=== PATIENT | male | born 1955 | race Caucasian/White ===

== ENCOUNTER 2024-05-18 07:25 | Emergency (ER) | payer MEDICARE, SELFPAY ==
[2024-05-18 07:36] VITALS: BP 147/96; PULSE 85; RESP 20; TEMP 36.6; O2SAT 97; BMI 31.4
--- NOTE | 2024-05-18 07:36 | XR_ITS ---
FINAL REPORT TECHNIQUE: 2 view chest CLINICAL HISTORY: Nonspecific cough COMPARISON: None FINDINGS: PA and lateral views of the chest were obtained. No acute pulmonary opacities present. There is no evidence of effusion or pneumothorax. 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 Otherwise mediastinum is unremarkable. The heart is normal in size. IMPRESSION: No acute findings. Reviewed, Interpreted and Dictated by Puja Caceres MD Transcribed by Bettye Alan Authenticated and [facility]
--- NOTE | 2024-05-18 07:41 | HMH.EDGENADL ---
Discharge Plan Disposition Patient Disposition: Home, Self-Care Prescriptions Prescriptions: New doxycycline hyclate 100 mg capsule 100 mg PO BID 7 Days Qty: 14 0RF fdysxydyskjqxsm-illjlqcko-WD [Bromfed DM] 2-30-10 mg/5 mL syrup 5 ml PO Q6H PRN (Reason: cold symptoms) Qty: 118 0RF No Action atorvastatin 40 mg tablet 40 mg PO HS Patient Comments: TAKE 1 TABLET BY MOUTH ONCE DAILY venlafaxine 75 mg capsule,extended release 24hr 75 mg PO DAILY Patient Comments: TAKE 1 CAPSULE BY MOUTH ONCE DAILY pioglitazone 45 mg tablet 45 mg PO DAILY Patient Comments: TAKE 1 TABLET BY MOUTH ONCE DAILY meloxicam 7.5 mg tablet 7.5 mg PO DAILY Patient Comments: TAKE 1 TABLET BY MOUTH ONCE DAILY amlodipine 10 mg tablet 10 mg PO DAILY Patient Comments: TAKE 1 TABLET BY MOUTH ONCE DAILY metformin 1,000 mg tablet 1,000 mg PO BID Patient Comments: TAKE 1 TABLET BY MOUTH TWICE DAILY metoprolol succinate 25 mg tablet extended release 24 hr 25 mg PO HS Patient Comments: TAKE 1 TABLET BY MOUTH ONCE DAILY AT NIGHT lisinopril 40 mg tablet 40 mg PO DAILY Patient Comments: TAKE 1 TABLET BY MOUTH ONCE DAILY Referrals Follow up/Referrals: Provider,Referral, MD [Primary Care Provider] - See instructions Activity Restrictions/Add. Instructions Additional Instructions/Restrictions: At this time it was felt you are safe to be discharged home. If new or worsening symptoms please do not hesitate to return the emergency department. Please take your medications as prescribed. Clinical Impressions Clinical Impression: Atypical pneumonia Print Language Print Language: Icelandic Discharge ED Provider: Dyllan Heredia General Adult HPI General Chief complaint: Fever Stated complaint: fever, body aches, headache Time Seen by Provider: 05/18/24 07:36 History of Present Illness HPI narrative: Patient is a 68-year-old male with past medical history of diabetes who presents emergency department for evaluation of cough, congestion, body aches, loose stools. Onset was acute, over the last few days. No trauma. His sugars have been running well according to patient. No chest pain, no abdominal pain, no vision changes reported. No other acute complaints at this time. Please note that above description of symptoms, in this electronic medical record under categorization of recalled from ER triage doctor by RN are reflective of an initial nursing assessment, however, is not reflective of my full history and physical exam that was personally taken and clarified. Consequentially, this preceding description of symptoms, which may include the patient's categorized chief complaint in the EMR, do not reflect my personal clinical impression, and the ultimate description of history of present illness and patient stated complaints should be deferred to this section of the note. Unless stated otherwise or congruent with this section of the note, additional signs, symptoms, or incongruence should be interpreted as inaccurate with my clinical impression. Related Data Home Medications ?Medication ?Instructions ?Recorded ?Confirmed amlodipine 10 mg tablet 10 mg PO DAILY 05/18/24 05/18/24 atorvastatin 40 mg tablet 40 mg PO HS 05/18/24 05/18/24 lisinopril 40 mg tablet 40 mg PO DAILY 05/18/24 05/18/24 meloxicam 7.5 mg tablet 7.5 mg PO DAILY 05/18/24 05/18/24 metformin 1,000 mg tablet 1,000 mg PO BID 05/18/24 05/18/24 metoprolol succinate 25 mg 25 mg PO HS 05/18/24 05/18/24 tablet,extended release 24 hr pioglitazone 45 mg tablet 45 mg PO DAILY 05/18/24 05/18/24 venlafaxine 75 mg capsule,extended 75 mg PO DAILY 05/18/24 05/18/24 release 24 hr Previous Rx's ?Medication ?Instructions ?Recorded uumxebargwlvkhz-qyavtswgpymdoel-HH 5 ml PO Q6H PRN cold symptoms #118 05/18/24 2 mg-30 mg-10 mg/5 mL oral syrup mL (Bromfed DM) doxycycline hyclate 100 mg capsule 100 mg PO BID 7 days #14 caps 05/18/24 Allergies Allergy/AdvReac Type Severity Reaction Status Date / Time Naproxen Allergy Unknown Uncoded 02/16/17 15:09 [facility] Disclaimer: The information contained in this section may have been updated after the patient was seen, as this information can be updated by other users. Medical History (Updated 05/18/24 @ 08:32 by Dyllan eHredia MD) HLD (hyperlipidemia) Depression HTN (hypertension) Diabetes Social History Smoking Status: Never smoker alcohol intake: never current occupational status: other Travel in the last 8 weeks: None ROS Obtained: Yes Systems reviewed as appropriate & no additional complaints except as documented Physical Exam General General appearance: alert and in no apparent distress Head Head exam: atraumatic and normocephalic Eye Eye exam: Present PERRL and EOMI ENT ENT exam: Present mucous membranes moist Neck Neck exam: Present normal inspection Chest Chest inspection: Present normal inspection and symmetric chest wall rise Respiratory Respiratory exam: Present normal lung sounds bilaterally; Absent respiratory distress Cardiovascular Cardiovascular exam: Present regular rate and normal rhythm Abdominal Exam Abdominal exam: Present soft; Absent tenderness Extremities Exam Extremities exam: Present normal inspection Neurological Exam Neurological exam: Present alert, oriented X3, CN II-XII intact and normal gait; Absent motor sensory deficit Psychiatric Psychiatric exam: Present normal affect Skin Skin exam: Present warm and dry Medical Decision Making Medical Records Screening: Per USPSTF and CDC recommendations, given the prevalence of disease in our region, it is our hospital?s policy to screen for HIV and viral Hepatitis for all patients aged 18 and over and those with ongoing risk factors. Huy Inquiry Pt receiving controlled substance: No Vital Signs: 05/18/24 07:36 Temperature 97.9 F Temperature Source Temporal Artery Scan Pulse Rate [Right] 85 Respiratory Rate 20 Blood Pressure [Left Arm] 147/96 H Blood Pressure Mean [Left Arm] 113 Blood Pressure Source [Left Arm] Automatic Cuff 02 Sat by Pulse Oximetry 97 Oxygen Delivery Method Room Air Lab Data Lab Results 05/18/24 07:29: SARS-CoV-2 (PCR) Not detected, Influenza A Untype (PCR) Not detected, Influenza Type B (PCR) Not detected Orders (Tests/Meds): ED MEDICATIONS Discontinued Medications Generic Name Dose Route Start Last Admin Trade Name Bob PRN Reason Stop Dose Admin Acetaminophen 1,000 mg 05/18/24 07:45 05/18/24 07:55 Acetaminophen 500mg Tab PO 05/18/24 07:46 1,000 mg ONCE ONE Administration Ibuprofen 600 mg 05/18/24 07:45 05/18/24 07:55 Ibuprofen 600 Mg Tablet PO 05/18/24 07:46 600 mg ONCE ONE Administration ORDERS Category Date Time Status CXR 2 view (NOT portable) [XR chest 2V] Stat Exams 05/18/24 07:36 Completed Rapid PCR Covid and Flu A/B Stat Lab 05/18/24 07:29 Completed Medical Decision Narrative: In summary patient is a 68-year-old male past medical history described above presents emergency department for evaluation of cough, myalgias, congestion. Patient is hemodynamically stable nontoxic-appearing upon arrival, afebrile, nonfocal exam. Lungs are largely clear to auscultation. Screening for occult pneumonia will be conducted with two-view chest x-ray. Differential includes viral syndrome, among others. No chest pain warrant ACS workup. Fingerstick will be conducted to screen for hyperglycemia that would cause DKA. Initial inventions include Tylenol and ibuprofen. Initial workup reviewed by me, viral swab negative, chest x-ray informally interpreted by me, there appears to be reticulonodular opacities which given prevalence of atypical pneumonia or community may suggest atypical pneumonia given his symptoms. Fingerstick less than 200 no concern for DKA. Upon repeat evaluation patient had no tachycardia, no significant respiratory distress given this workup with labs and other imaging was considered but will be deferred at this time. Given this patient be treated with a course of doxycycline on an outpatient basis and was given return precautions. Critical Care Critical Care Time Critical Care Time: No
[2024-05-18 07:42] LABS: Coronavirus 19, PCR Not Detected (NotDetected); Influenza A, PCR Not Detected (NotDetected); Influenza B, PCR Not Detected (NotDetected)
[2024-05-18] MEDS: IBUPROFEN 600 MG TABLET PO (07:55)
[2024-05-18] MEDS: ACETAMINOPHEN 500MG TAB 1000 MG PO (07:55)
--- NOTE | 2024-05-18 08:32 | PC.NURSE ---
PATIENTS FINGER STICK WAS 190.
[2024-05-18 08:39] VITALS: BP 146/88; PULSE 84; RESP 18; TEMP 36.6; O2SAT 97
== END 2024-05-18 08:39 | disposition home or self-care (01) ==
PROVIDERS: Emergency Provider Emergency Medicine
DX: J18.9 Pneumonia, unspecified organism (principal); R05.9 Cough, unspecified; R09.81 Nasal congestion; M79.10 Myalgia, unspecified site; R19.7 Diarrhea, unspecified
CPT/HCPCS: 71046; 87636; 99283

== ENCOUNTER 2024-08-11 00:01 | Observation (INO) | payer MEDICARE, SELFPAY ==
[2024-08-11] VITALS (54 sets, daily range): BP systolic 127–203; BP diastolic 57–118; PULSE 46–80; RESP 10–26; TEMP 36.4–37.5; O2SAT 89–98; BMI 30.7; BMI 33.2
--- NOTE | 2024-08-11 | ECG_ITS ---
APPROVED REPORT Exam: Resting ECG HR:61 bpm ECG Measurements Heart Rate 61 AXES CA 202 P 83 QRSd 93 QRS -19 QT 396 T 54 QTc 399 Conclusion SINUS RHYTHM SEPTAL MYOCARDIAL INFARCTION , PROBABLY OLD [40+ ms Q WAVE IN V1/V2] ST DEPRESSION, CONSIDER SUBENDOCARDIAL INJURY [0.1+ mV ST DEPRESSION] ABNORMAL ECG WARNING: DATA QUALITY MAY AFFECT INTERPRETATION UNCONFIRMED REPORT Electronically signed by : LUBA ARORA, 08/11/2024 06:50:17
--- NOTE | 2024-08-11 00:06 | CT_ITS ---
PROCEDURE INFORMATION: Exam: CTA Abdomen and Pelvis With Contrast Exam date and time: 08/11/2024 12:21 AM Age: 68 years old Clinical indication: Abdominal pain; Acute; Additional info: HTN, severe cp/epigastric pain into back TECHNIQUE: Imaging protocol: Computed tomographic angiography of the abdomen and pelvis with contrast. Exam focused on the arteries. 3D rendering (Not supervised by radiologist): MIP and/or 3D reconstructed images were created by the technologist. Radiation optimization: All CT scans at this facility use at least one of these dose optimization techniques: automated exposure control; mA and/or kV adjustment per patient size (includes targeted exams where dose is matched to clinical indication); or iterative reconstruction. Contrast material: ISOVUE; Contrast volume: 80 ml; Contrast route: INTRAVENOUS (IV); COMPARISON: CT ANGIO CHEST 08/11/2024 12:21 AM FINDINGS: Aorta: No aortic aneurysm. No aortic dissection. Mild atherosclerotic calcification. Celiac trunk and mesenteric arteries: No occlusion or significant stenosis. Mild ostial calcification. Renal arteries: No occlusion or significant stenosis. Mild osteo calcification. Right iliac arteries: No occlusion or significant stenosis. Mild atherosclerotic calcification. Left iliac arteries: No occlusion or significant stenosis. Mild atherosclerotic calcification. Liver: No mass. Gallbladder and biliary ducts: Unremarkable. No calcified stones. No ductal dilation. Pancreas: Unremarkable. No mass. No ductal dilation. Spleen: Unremarkable. No splenomegaly. Adrenal glands: Unremarkable. No mass. Kidneys and ureters: Right renal cysts measuring up to 2.4 cm. No solid mass. No nephroureterolithiasis. No hydronephrosis. Stomach and bowel: Unremarkable. No obstruction. No mucosal thickening. Appendix: No evidence of appendicitis. Intraperitoneal space: Unremarkable. No free air. No significant fluid collection. Lymph nodes: Unremarkable. No enlarged lymph nodes. Urinary bladder: Unremarkable. No mass. Reproductive: Unremarkable as visualized. Bones/joints: No acute fracture. Soft tissues: Unremarkable. IMPRESSION: Unremarkable CTA.
--- NOTE | 2024-08-11 00:06 | CT_ITS ---
PROCEDURE INFORMATION: Exam: CTA Chest With Contrast Exam date and time: 08/11/2024 12:21 AM Age: 68 years old Clinical indication: Pain; Chest pressure; Additional info: HTN, severe cp into back TECHNIQUE: Imaging protocol: Computed tomographic angiography of the chest with contrast. Exam focused on the arteries. 3D rendering (Not supervised by radiologist): MIP and/or 3D reconstructed images were created by the technologist. Radiation optimization: All CT scans at this facility use at least one of these dose optimization techniques: automated exposure control; mA and/or kV adjustment per patient size (includes targeted exams where dose is matched to clinical indication); or iterative reconstruction. Contrast material: ISOVUE; Contrast volume: 80 ml; Contrast route: INTRAVENOUS (IV); COMPARISON: CR XR CHEST 2V 05/18/2024 7:50 AM FINDINGS: Pulmonary arteries: No central or segmental pulmonary arterial intraluminal filling defects identified. Aorta: Atherosclerotic calcification of aorta. No aneurysm no dissection. Lungs: Unremarkable. No consolidation. No masses. Pleural spaces: Unremarkable. No pneumothorax. No pleural effusion. Heart: Unremarkable. No cardiomegaly. No pericardial effusion. Coronary arteries: Atherosclerotic calcification of coronary arteries. Lymph nodes: Calcified hilar lymph nodes. No lymphadenopathy. Bones/joints: Unremarkable. No acute fracture. Soft tissues: Unremarkable. IMPRESSION: No central or segmental pulmonary arterial embolism identified.
--- NOTE | 2024-08-11 00:08 | HMH.EDGENADL ---
Discharge Plan Disposition Patient Disposition: Admitted Prescriptions Prescriptions: No Action atorvastatin 40 mg tablet 40 mg PO HS Patient Comments: TAKE 1 TABLET BY MOUTH ONCE DAILY venlafaxine 75 mg capsule,extended release 24hr 75 mg PO DAILY Patient Comments: TAKE 1 CAPSULE BY MOUTH ONCE DAILY pioglitazone 45 mg tablet 45 mg PO DAILY Patient Comments: TAKE 1 TABLET BY MOUTH ONCE DAILY meloxicam 7.5 mg tablet 7.5 mg PO DAILY Patient Comments: TAKE 1 TABLET BY MOUTH ONCE DAILY amlodipine 10 mg tablet 10 mg PO DAILY Patient Comments: TAKE 1 TABLET BY MOUTH ONCE DAILY metformin 1,000 mg tablet 1,000 mg PO BID Patient Comments: TAKE 1 TABLET BY MOUTH TWICE DAILY metoprolol succinate 25 mg tablet extended release 24 hr 25 mg PO HS Patient Comments: TAKE 1 TABLET BY MOUTH ONCE DAILY AT NIGHT lisinopril 40 mg tablet 40 mg PO DAILY Patient Comments: TAKE 1 TABLET BY MOUTH ONCE DAILY doxycycline hyclate 100 mg capsule 100 mg PO BID 7 Days Qty: 14 0RF [id number] [Bromfed DM] 2-30-10 mg/5 mL syrup 5 ml PO Q6H PRN (Reason: cold symptoms) Qty: 118 0RF Referrals Follow up/Referrals: Provider,Referral, MD [Primary Care Provider, Medical] - See instructions Clinical Impressions Clinical Impression: Hypertensive emergency, Angina pectoris, unstable Print Language Print Language: Yi Discharge ED Provider: Russ Morales Adult HPI General Chief complaint: Chest Pain Stated complaint: Chest pain Time Seen by Provider: 08/11/24 00:02 Mode of Arrival: Ambulatory Description of Symptoms (Recalled from ER Triage Doc. by RN): CHEST PAIN. MIDSTERNAL RADIATING AROUND TO BACK. VOMITED History of Present Illness HPI narrative: 68-year-old male with history of hypertension diabetes coronary artery disease status post prior stents and triple-vessel CABG presents for chest pain. Reports it started relatively suddenly, centrally located, radiating to the back. Reports it is severe, 10 out of 10, associated with nausea and vomiting. He reports it feels like when he had a heart attack in the past. Denies any belly pain. Reports that he took his nightly meds. Related Data Home Medications ?Medication ?Instructions ?Recorded ?Confirmed amlodipine 10 mg tablet 10 mg PO DAILY 05/18/24 05/18/24 atorvastatin 40 mg tablet 40 mg PO HS 05/18/24 05/18/24 lisinopril 40 mg tablet 40 mg PO DAILY 05/18/24 05/18/24 meloxicam 7.5 mg tablet 7.5 mg PO DAILY 05/18/24 05/18/24 metformin 1,000 mg tablet 1,000 mg PO BID 05/18/24 05/18/24 metoprolol succinate 25 mg 25 mg PO HS 05/18/24 05/18/24 tablet,extended release 24 hr pioglitazone 45 mg tablet 45 mg PO DAILY 05/18/24 05/18/24 venlafaxine 75 mg capsule,extended 75 mg PO DAILY 05/18/24 05/18/24 release 24 hr Previous Rx's ?Medication ?Instructions ?Recorded vafolkqvlodcwnl-jrmqypuzxujnbsi-AM 5 ml PO Q6H PRN cold symptoms #118 05/18/24 2 mg-30 mg-10 mg/5 mL oral syrup mL (Bromfed DM) doxycycline hyclate 100 mg capsule 100 mg PO BID 7 days #14 caps 05/18/24 Allergies Allergy/AdvReac Type Severity Reaction Status Date / Time Naproxen Allergy Unknown Uncoded 02/16/17 15:09 [facility] Disclaimer: The information contained in this section may have been updated after the patient was seen, as this information can be updated by other users. Medical History (Updated 08/11/24 @ 01:24 by Russ Morales MD) HLD (hyperlipidemia) Depression HTN (hypertension) Diabetes Social History (Updated 05/18/24 @ 08:33 by Dyllan Heredia MD) Smoking Status: Never smoker alcohol intake: never current occupational status: other Travel in the last 8 weeks?: None ROS Obtained: Yes All systems reviewed & no additional complaints except as documented Physical Exam General General appearance: alert and in distress Head Head exam: atraumatic and normocephalic Eye Eye exam: Present normal appearance, PERRL and EOMI ENT ENT exam: Present normal oropharynx and normal external ear exam Neck Neck exam: Present normal inspection and full ROM Chest Chest inspection: Present normal inspection and symmetric chest wall rise; Absent tenderness Respiratory Respiratory exam: Present normal lung sounds bilaterally; Absent respiratory distress Cardiovascular Cardiovascular exam: Present regular rate and normal rhythm Abdominal Exam Abdominal exam: Present soft; Absent distention, tenderness or guarding Extremities Exam Extremities exam: Present normal inspection; Absent edema or joint swelling Back Exam Back exam: Present normal inspection; Absent tenderness Neurological Exam Neurological exam: Present alert and oriented X3; Absent motor sensory deficit Psychiatric Psychiatric exam: Present normal affect and normal mood Skin Skin exam: Present warm, dry and normal color Lymphatic Lymphatic Findings: no adenopathy Medical Decision Making Medical Records Medical records reviewed: Yes I reviewed the patient's medical records. Screening: Per USPSTF and CDC recommendations, given the prevalence of disease in our region, it is our hospital?s policy to screen for HIV and viral Hepatitis for all patients aged 18 and over and those with ongoing risk factors. Huy Inquiry Pt receiving controlled substance: No Huy was queried for this patient: No Vital Signs: 08/11/24 00:03 08/11/24 00:08 08/11/24 00:11 Temperature 98.1 F Temperature Source Oral Pulse Rate 59 L 63 Pulse Rate [Brachial] 61 Respiratory Rate 18 17 13 Blood Pressure 195/95 H 203/118 H Blood Pressure [Right Arm] 196/103 H Blood Pressure Mean [Right Arm] 134 Blood Pressure Source [Right Arm] Automatic Cuff Blood Pressure Position Blood Pressure Position [Right Arm] Sitting 02 Sat by Pulse Oximetry 96 97 96 Oxygen Delivery Method Room Air 08/11/24 00:12 08/11/24 00:13 08/11/24 00:27 Temperature Temperature Source Pulse Rate 61 64 Pulse Rate [Brachial] Respiratory Rate 15 Blood Pressure 203/118 H 163/89 H Blood Pressure [Right Arm] Blood Pressure Mean [Right Arm] Blood Pressure Source [Right Arm] Blood Pressure Position Sitting Blood Pressure Position [Right Arm] 02 Sat by Pulse Oximetry 94 L Oxygen Delivery Method 08/11/24 00:30 08/11/24 01:01 08/11/24 01:09 Temperature Temperature Source Pulse Rate 61 63 61 Pulse Rate [Brachial] Respiratory Rate 18 15 18 Blood Pressure 160/86 H 151/84 H 156/86 H Blood Pressure [Right Arm] Blood Pressure Mean [Right Arm] Blood Pressure Source [Right Arm] Blood Pressure Position Blood Pressure Position [Right Arm] 02 Sat by Pulse Oximetry 94 L 92 L 90 L Oxygen Delivery Method Lab Data Lab results reviewed: Yes I reviewed the patient's lab results. Lab Results 08/11/24 00:06: WBC 7.6, RBC 4.88, Hgb 14.4, Hct 42.3, MCV 86.7, MCH 29.5, MCHC 34.0, RDW 13.0, Plt Count 261, MPV 9.9, Neut % (Auto) 59.4, Lymph % (Auto) 25.8, [place] % (Auto) 9.1, Eos % (Auto) 4.4, Baso % (Auto) 0.5, Neut # (Auto) 4.5, Lymph # (Auto) 2.0, [place] # (Auto) 0.7, Eos # (Auto) 0.3, Baso # (Auto) 0.0, PT 10.7, INR 0.96, APTT 24.8, Sodium 139, Potassium 3.1 L, Chloride 101, Carbon Dioxide 32 H, Anion Gap 9.1, BUN 19, Creatinine 0.70, Estimated Creat Clear 100, Estimated GFR 112, Est GFR ( Amer) 136, Glucose 169 H, Calcium 9.4, Total Bilirubin 0.6, AST 36, ALT 28, Alkaline Phosphatase 109, Troponin I 0.03, Total Protein 7.9, Albumin 4.5, Globulin 3.4 H, Albumin/Globulin Ratio 1.3, Lipase 81 08/11/24 00:06 08/11/24 00:06 Orders (Tests/Meds): ED MEDICATIONS Generic Name Dose Route Start Last Admin Trade Name Freq PRN Reason Stop Dose Admin Nitroglycerin/Dextrose 250 mls @ 1.5 mls/hr 08/11/24 01:30 Nitroglycerin 50mg/250ml D5w IV 09/10/24 01:29 .Q24H SHEILA Protocol 5 MCG/MIN Heparin Sodium/Dextrose 500 mls @ 20 mls/hr 08/11/24 01:30 Heparin 25,000 Units In D5w 500ml Premix IV 09/10/24 01:29 .Q25H SHEILA 1,000 UNITS/HR Nitroglycerin 0.4 mg 08/11/24 00:05 08/11/24 01:07 Nitroglycerin 0.4mg Sl Tablet SL 09/10/24 00:04 0.4 mg Q5MINP PRN Administration Chest Pain Potassium Chloride 40 meq 08/11/24 01:23 Potassium Chloride 20meq Tab PO 08/11/24 01:24 ONCE ONE Discontinued Medications Generic Name Dose Route Start Last Admin Trade Name Freq PRN Reason Stop Dose Admin Acetaminophen 1,000 mg 08/11/24 00:05 08/11/24 00:10 Acetaminophen 500mg Tab PO 08/11/24 00:06 1,000 mg ONCE ONE Administration Aspirin 324 mg 08/11/24 00:05 08/11/24 00:10 Aspirin 81mg Chewable Tablet PO 08/11/24 00:06 324 mg ONCE ONE Administration Belladonna Alkaloids 60 ml 08/11/24 00:05 08/11/24 00:10 Belladonna Alkaloids 60 Ml Ml PO 08/11/24 00:06 60 ml ONCE ONE Administration Iopamidol 80 ml 08/11/24 00:32 08/11/24 00:33 Iopamidol-370 (76%);100ml Bottle IV 08/11/24 00:33 80 ml ONCE ONE Administration Sodium Chloride 50 ml 08/11/24 00:32 08/11/24 00:33 0.9 % Sodium Chloride 50 Ml Vial IV 08/11/24 00:33 50 ml ONCE ONE Administration Sodium Chloride 10 ml 08/11/24 00:32 08/11/24 00:33 Sodium Chloride 0.9% 10ml Syr (Rad Only) IV 08/11/24 00:33 10 ml ONCE ONE Administration ORDERS Category Date Time Status CT angio abdomen pelvis Stat Cat Scan 08/11/24 00:06 Completed CTA Chest [CT angio chest - dissection] Stat Cat Scan 08/11/24 00:06 Completed CBC w/Auto Diff [Complete Blood Count Auto Diff] Stat Lab 08/11/24 00:06 Completed CMP [Comprehensive Metabolic Panel] Stat Lab 08/11/24 00:06 Completed HIV Combo Routine Lab 08/11/24 00:06 Received Hepatitis C Ab Qual. W/ RFX Routine Lab 08/11/24 00:06 Received INR [Prothrombin Time INR] Stat Lab 08/11/24 00:06 Completed Lipase Stat Lab 08/11/24 00:06 Completed PTT [Activated Partial Thrombo Time] Stat Lab 08/11/24 00:06 Completed Troponin I Q3H Lab 08/11/24 00:06 Completed Troponin I Q3H Lab 08/11/24 03:15 Ordered ECG Data Tracing #1: I reviewed this ECG and interpreted as documented below: Sinus rhythm, ST depressions in the precordial leads as well as 1 and aVL. Subtle elevation in aVR. No evidence of arrhythmia. QRS complex has some ST elevation in V5 and V6, appears artifactual, will repeat ECG initial impression date: 08/11/24 ECG initial impression time: 00:00 Tracing #2: I reviewed this ECG and interpreted as documented below: Sinus bradycardia with rate of 57, unchanged from prior with the exception of resolution of the artifactual QRS complex and V5 and V6. Shows subtle diffuse ST depression consistent with subendocardial injury. ECG initial impression date: 08/11/24 ECG initial impression time: 00:04 Tracing #3: I reviewed this ECG and interpreted as documented below: Sinus bradycardia, rate of 59, unchanged from prior EKG, ST depressions remain. No arrhythmia ECG initial impression date: 08/11/24 ECG initial impression time: 00:59 HEART Score History (anamnesis): Highly suspicious ECG: Significant ST-deviation Age: >65 years Risk factors: Atherosclerosis history Troponin: </= normal limit HEART Score: 8 Medical Decision Narrative: 60-year-old male with history of hypertension hyperlipidemia diabetes coronary artery disease status post stents and three-vessel CABG presents for acute severe chest pain radiating to back. History was obtained via interactive discussion with patient. On arrival, patient is afebrile, hypertensive with systolic 200, satting appropriately on room air, GCS 15, moving all extremities spontaneously. Full physical exam performed and significant for mild epigastric tenderness, clear lungs bilateral Differential includes but is not limited to aortic dissection, ACS, hypertensive emergency, PE, cholecystitis, pancreatitis, GERD,. Patient was given nitroglycerin x 3, full dose aspirin, Tylenol, GI cocktail for symptomatic management and correction of underlying abnormalities. Workup initiated including CBC CMP troponin multiple EKGs and emergent CTA chest abdomen pelvis to assess for dissection. On re-evaluation, patient reports improvement in pain after nitro administration. Blood pressure 160 systolic. Laboratory workup independently interpreted by me and significant for no significant leukocytosis, mild hypokalemia, repleted orally. Initial troponin at upper limit of normal. Imaging independently interpreted by me and significant for no evidence of dissection, PE, pancreatitis, pneumonia. See radiology read for full review of final results. EKG independently interpreted by me and significant for diffuse mild ST depressions with reciprocal elevation in aVR. Multiple repeats with improvement in chest pain remain unchanged. Given patient history, exam and workup, patient's presentation most likely represents hypertensive emergency and unstable angina. I placed patient on a nitro drip titrated to chest pain as well as a heparin drip. Interactive discussion was had with hospitalist on-call for admission. Procedures Risk/Benefits of Procedure(s) Were Explained: Yes Critical Care Critical Care Time Critical Care Time: Yes Attestation: On 08/11/24, the high probability of a clinically significant, sudden or life threatening deterioration of the following system(s) cardiac required my full and direct attention, intervention and personal management. The time I documented below is in addition to time spent performing reported procedures but includes the following listed in this critical care notation. Total Time Total Critical Care Time: 40
[2024-08-11] MEDS: NITROGLYCERIN 0.4MG SL TABLET 0.4 MG SL ×3 (00:10→01:07)
[2024-08-11] MEDS: ASPIRIN 81MG CHEWABLE TABLET 324 MG PO (00:10)
[2024-08-11] MEDS: ACETAMINOPHEN 500MG TAB 1000 MG PO (00:10)
[2024-08-11] MEDS: BELLADONNA ALKALOIDS 60 ML ML PO ×2 (00:10→17:12)
--- NOTE | 2024-08-11 00:14 | PC.NURSE ---
ORACIO AT BEDSIDE TO TAKE TO CT.
[2024-08-11 00:17] LABS: Hemoglobin 14.4 g/dL (14.1-18.0); Red Blood Count 4.88 M/mm3 (4.60-6.20); White Blood Count 7.6 K/mm3 (4.8-10.8)
[2024-08-11 00:18] LABS: Hematocrit 42.3 % (42.0-52.0); Mean Corpuscular Hemoglobin 29.5 pg (27.0-31.2); Mean Corpuscular Volume 86.7 fl (80-94); Red Cell Distribution Width-SD 40.1 fL
[2024-08-11 00:19] LABS: Basophils % 0.5 % (0.1-2.0); Eosinophils % 4.4 % (0.1-12.0); Immature Granulocytes % 0.8 %; Lymphocytes % 25.8 % (10-50); Mean Platelet Volume 9.9 fl (7.4-10.4); Monocytes # 0.7 K/mm3 (0.1-1.0); Monocytes % 9.1 % (1.7-9.3); Neutrophils # 4.5 K/mm3 (1.8-7.8); Neutrophils % 59.4 % (37.0-80.0); Nucleated Red Blood Cells % 0 %; Platelet Count 261 K/mm3 (142-424)
[2024-08-11 00:20] LABS: Eosinophils # 0.3 Kmm3 (0.0-0.4); Immature Granulocytes # 0.06 10^3uL; Nucleated Red Blood Cells # 0 10^3/uL
--- NOTE | 2024-08-11 00:25 | PC.NURSE ---
PATIENT RETURNED FROM CT SCAN
[2024-08-11 00:32] LABS: Activated Partial Thrombo Time 24.8 seconds (22.8-30.6); INR 0.96 (0.9-1.1); Prothrombin Time 10.7 seconds (10.1-12.5)
[2024-08-11] MEDS: IOPAMIDOL-370 (76%);100ML BOTTLE 80 ML IV (00:33)
[2024-08-11] MEDS: SODIUM CHLORIDE 0.9% 10ML SYR (RAD ONLY) 10 ML IV (00:33)
[2024-08-11] MEDS: 0.9 % SODIUM CHLORIDE 50 ML VIAL IV (00:33)
[2024-08-11 00:34] LABS: Alanine Aminotransferase 28 U/L (12-78); Albumin Level 4.5 g/dl (3.5-5.0); Albumin/Globulin Ratio 1.3 (1.1-1.8); Alkaline Phosphatase 109 U/L (38-126); Anion Gap 9.1 mEq/L (5-15); Aspartate Amino Transferase 36 U/L (17-59); Bilirubin,Total 0.6 mg/dl (0.2-1.3); Blood Urea Nitrogen 19 mg/dl (9-20); Calcium 9.4 mg/dl (8.4-10.2); Carbon Dioxide 32 mmol/L (22.0-30.0); Chloride 101 mmol/L (98-107); Creatinine Clearance Estimated 100 mL/min (50-200); Estimated Glomerular Filt Rate 112 ml/min (>60); GFR (African American) 136 ML/MIN (>60); Globulin 3.4 g/dL (1.3-3.2); Glucose 169 mg/dl (74-100); Lipase 81 U/L (23-300); Potassium 3.1 mmoL/L (3.5-5.1); Sodium 139 mmol/L (136-145); Total Protein,Serum 7.9 g/dl (6.3-8.2)
[2024-08-11 00:45] LABS: Troponin I 0.03 ng/ml (0.00-0.034)
[2024-08-11] MEDS: HEPARIN SODIUM,PORCINE/D5W 500 ML 20 UNIT IV (01:34)
[2024-08-11] MEDS: NITROGLYCERIN IN 5 % DEXTROSE 250 ML 1.5 MG IV (01:35)
[2024-08-11] MEDS: POTASSIUM CHLORIDE 20MEQ TAB 40 MEQ PO (01:35)
--- NOTE | 2024-08-11 02:02 | PC.NURSE ---
report called to Debra RN
--- NOTE | 2024-08-11 02:30 | PC.NURSE ---
Pt arrived to ICU from ED via wheelchair @[id number]
[2024-08-11 02:53] LABS: POC Glucose,Bedside 187 (70-110)
[2024-08-11 03:13] LABS: HIV Combo NEGATIVE (Negative)
[2024-08-11 03:24] LABS: Hepatitis C Ab Qual. W/ RFX NEGATIVE (Negative)
[2024-08-11 04:06] LABS: Troponin I 0.03 ng/ml (0.00-0.034)
--- NOTE | 2024-08-11 05:20 | CA_ITS ---
APPROVED REPORT EXAM: Comprehensive 2D, Doppler, and color-flow Echocardiogram Back End Developer: Katarina Marshall RVT Ht: 5 ft 10 in Wt: 237lbs BSA: 2.24 BP: 146/79 mmHg Indications: CHEST PAIN,CORONARY ARTERY DISEASE 2D Dimensions LA Volume 78.20 mL LA Volume Index 34.76 mL/m2 (M/F) 16-34 M-Mode Dimensions RVDd 3.39 cm (0.9-2.6) LA Diam 5.62 cm (1.9-4.0) LVDd 5.21 cm (3.5-5.7) LVDs 3.73 cm (3.5-5.7) IVSd 0.38 cm (0.6-1.1) PWd 0.76 cm (0.6-1.1) EF (Teich) 54.40% FS 28.40% EDV (Teich) 130.10 mL ESV (Teich) 59.30 mL LV Diastology E Decel Time 213 (160-240 msec) E/A Ratio 0.9 Aortic Valve SONNY Index 0.78 cm2/m2 AoV Peak Yonathan. 140.0 (50-130 cm/s) AO Peak GR. 7.80 mmHg AO Mean GR. 3.90 (<5 mmHg) AO VTI 24.1 (18-25 cm) SONNY (VTI) 1.79 (2.5-4.5 cm2) Mitral Valve MV E Max Yonathan. 79.0 (40-130 cm/s) MV A Velocity 88.0 (40-130 cm/s) E/A Ratio 0.89 MV PHT 62.0 ms Pulmonary Valve PV Peak Velocity 88.0 (50-150 cm/s) Tricuspid Valve TR P. Velocity 255.00 cm/s RAP Estimate 10.00 mmHg RVSP 36.10 mmHg Left Ventricle The left ventricle is normal size. The left ventricular systolic function is normal. The left ventricular ejection fraction is within the normal range. Proximal septal thickening is present. There is normal LV segmental wall motion. Transmitral Doppler flow pattern suggests impaired LV relaxation. LVEF is 55%. Right Ventricle Right ventricle is mildly dilated. The right ventricular systolic function is normal. Atria Left atrium is moderately dilated. Right atrium is moderately dilated. There is no Doppler evidence of interatrial shunt. Aortic Valve The aortic valve is mildly thickened. There is no aortic valvular stenosis. Trace aortic regurgitation. Mitral Valve The mitral valve is normal in structure. No evidence of mitral valve stenosis. Trace mitral regurgitation. Tricuspid Valve Tricuspid valve is grossly normal in structure and function. Mild tricuspid regurgitation. RVSP is 25-30 mmHg. Pulmonic Valve The pulmonary valve is normal in structure. Trace pulmonic regurgitation. Great Vessels The aortic root is normal in size. IVC is normal in size and collapses >50% with inspiration. Pericardium There is no pericardial effusion. Other Information Study Quality: Fair Conclusion Normal biventricular systolic function. Mild RV dilation. Biatrial dilation. Mild TR. RVSP is 25-30 mmHg. Electronically signed by : Reyna Sawyer MD 08/11/2024 13:37:54
--- NOTE | 2024-08-11 05:21 | EXP.HP ---
History of Present Illness *Admission Date: 08/11/24 *Reason for visit:: Chest pain *History of present illness: Patient is a 68-year-old male with past medical history of CAD status post CABG, hypertension hyperlipidemia and diabetes mellitus who presents to the hospital due to epigastric chest pain radiating to the back. According to patient it is associated with nausea vomiting, denies associated left arm pain fevers chills shortness of breath. Patient mentions his pain improved somewhat with nitroglycerin, patient was started on IV nitro and admitted for further evaluation for cardiology. 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 Patient otherwise denied diarrhea constipation dysuria fevers or chills PFSH [facility] Disclaimer: The information contained in this section may have been updated after the patient was seen, as this information can be updated by other users. Medical History (Updated 08/11/24 @ 05:22 by Juan Vazquez MD) History of chest pain HLD (hyperlipidemia) Depression HTN (hypertension) Diabetes Social History (Updated 05/18/24 @ 08:33 by Dyllan Heredia MD) Smoking Status: Never smoker alcohol intake: never current occupational status: other Travel in the last 8 weeks?: None Other Medical History Have you received the Flu Vaccine for this season: Yes Have you received the Pneumonia Vaccine: No Review of Systems Review of Systems Review of systems:: pertinent systems reviewed and negative unless documented below Meds Home Medications and Allergies Home Medications ?Medication ?Instructions ?Recorded ?Confirmed ?Type amlodipine 10 mg tablet 10 mg PO DAILY 05/18/24 08/11/24 History atorvastatin 40 mg tablet 40 mg PO HS 05/18/24 08/11/24 History doxycycline hyclate 100 mg capsule 100 mg PO BID 7 days #14 caps 05/18/24 Rx lisinopril 40 mg tablet 40 mg PO DAILY 05/18/24 08/11/24 History meloxicam 7.5 mg tablet 7.5 mg PO DAILY 05/18/24 08/11/24 History metformin 1,000 mg tablet 1,000 mg PO BID 05/18/24 08/11/24 History metoprolol succinate 25 mg 25 mg PO HS 05/18/24 08/11/24 History tablet,extended release 24 hr pioglitazone 45 mg tablet 45 mg PO DAILY 05/18/24 08/11/24 History venlafaxine 75 mg capsule,extended 75 mg PO DAILY 05/18/24 08/11/24 History release 24 hr New Prescriptions to Start Prescriptions: Allergies Allergy/AdvReac Type Severity Reaction Status Date / Time Naproxen Allergy Unknown Uncoded 02/16/17 15:09 Exam Data for Last 24 hours Vital signs and Labs for Last 24 Hours: Temp Pulse Resp BP Pulse Ox O2 Del Method O2 Flow Rate 98.6 F 63 14 146/79 H 95 Nasal Cannula 2 08/11/24 04:00 08/11/24 04:45 08/11/24 04:45 08/11/24 04:45 08/11/24 04:45 08/11/24 04:53 08/11/24 04:53 Laboratory Results - last 24 hr 08/11/24 00:06: WBC 7.6, RBC 4.88, Hgb 14.4, Hct 42.3, MCV 86.7, MCH 29.5, MCHC 34.0, RDW 13.0, Plt Count 261, MPV 9.9, Neut % (Auto) 59.4, Lymph % (Auto) 25.8, [place] % (Auto) 9.1, Eos % (Auto) 4.4, Baso % (Auto) 0.5, Neut # (Auto) 4.5, Lymph # (Auto) 2.0, [place] # (Auto) 0.7, Eos # (Auto) 0.3, Baso # (Auto) 0.0, PT 10.7, INR 0.96, APTT 24.8, Sodium 139, Potassium 3.1 L, Chloride 101, Carbon Dioxide 32 H, Anion Gap 9.1, BUN 19, Creatinine 0.70, Estimated Creat Clear 100, Estimated GFR 112, Est GFR ( Amer) 136, Glucose 169 H, Calcium 9.4, Total Bilirubin 0.6, AST 36, ALT 28, Alkaline Phosphatase 109, Troponin I 0.03, Total Protein 7.9, Albumin 4.5, Globulin 3.4 H, Albumin/Globulin Ratio 1.3, Lipase 81, HCV Ab JAYASHREE w/Rflx PCR Qn Negative, HIV Ag/Ab Combo Qual Negative 08/11/24 02:36: POC Glucose 187 H 08/11/24 03:38: Troponin I 0.03 I & O for Last 24 hours: Intake & Output 08/08/24 08/09/24 08/10/24 08/11/24 23:59 23:59 23:59 23:59 Intake Total 0.863 / 0.863 Balance 0.863 / 0.863 Weight 107.7 kg Constitutional Constitutional: no acute distress *Routine HEENT Exam Head: Present normocephalic Eye: Present EOMI and PERRL ENT: Present mucous membranes moist *Routine Neck Exam Neck: Present supple; Absent lymphadenopathy *Routine Respiratory Exam Respiratory: Present CTA bilaterally *Routine Cardiovascular Exam Cardiovascular: Present RRR *Routine Abdominal Exam Abdominal: Present soft and normoactive bowel sounds; Absent tenderness *Routine Rectal Exam Rectal:: deferred *Routine Genitalia Exam Genitalia:: deferred *Routine Extremities Exam Extremities: Absent cyanosis, clubbing or edema *Routine Skin Exam Skin: Present warm; Absent rash *Routine Neurological Exam Neurological: Present alert and oriented X3 Assessment and Plan *Assessment and plan (1) Angina pectoris, unstable: Status: Acute Category: Medical Code(s): I20.0 - Unstable angina (2) Hypertensive emergency: Status: Acute Category: Medical Code(s): I16.1 - Hypertensive emergency (3) CAD (coronary artery disease): Status: Acute Category: Medical Code(s): I25.10 - Atherosclerotic heart disease of [place] coronary artery without angina pectoris (4) HLD (hyperlipidemia): Status: Acute Category: Medical Code(s): E78.5 - Hyperlipidemia, unspecified (5) HTN (hypertension): Status: Acute Category: Medical Code(s): I10 - Essential (primary) hypertension Plan Patient is a 68-year-old male with past medical history of CAD status post CABG, hypertension hyperlipidemia and diabetes mellitus who presents to the hospital due to epigastric chest pain radiating to the back. According to patient it is associated with nausea vomiting, denies associated left arm pain fevers chills shortness of breath. Patient mentions his pain improved somewhat with nitroglycerin, patient was started on IV nitro and admitted for further evaluation for cardiology. 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 Patient otherwise denied diarrhea constipation dysuria fevers or chills Assessment and plan Chest pain suspect due to ACS History of depression on EKG Troponin within normal limits Monitor on cardiac telemetry Consult cardiology Check echocardiogram Patient is started on IV heparin, IV nitroglycerin As needed Zofran Lipase checked-within normal limits, CTA chest performed-negative for PE CT abdomen pelvis performed-negative for intra-abdominal process Chronic medical conditions CAD Hypertension Diabetes mellitus Hyperlipidemia - Resume home amlodipine atorvastatin, lisinopril Order insulin sliding scale DVT prophylaxis-on IV heparin
[2024-08-11] MEDS: humaLOG 100 UNITS/ML 10ML VIAL (SSI) SUBCUT ×3 (05:55→20:39)
[2024-08-11 05:58] LABS: POC Glucose,Bedside 184 (70-110)
[2024-08-11 05:59] LABS: Basophils % 0.4 % (0.1-2.0); Eosinophils # 0.2 Kmm3 (0.0-0.4); Eosinophils % 1.7 % (0.1-12.0); Hematocrit 37.2 % (42.0-52.0); Immature Granulocytes # 0.07 10^3uL; Immature Granulocytes % 0.7 %; Lymphocytes # 1.5 K/mm3 (0.7-4.5); Lymphocytes % 14.3 % (10-50); Mean Corpuscular HGB Conc 33.6 g/dL (31.8-35.4); Mean Corpuscular Hemoglobin 29.2 pg (27.0-31.2); Mean Corpuscular Volume 86.9 fl (80-94); Mean Platelet Volume 10.4 fl (7.4-10.4); Monocytes # 0.8 K/mm3 (0.1-1.0); Monocytes % 7.2 % (1.7-9.3); Neutrophils # 8.2 K/mm3 (1.8-7.8); Neutrophils % 75.7 % (37.0-80.0); Nucleated Red Blood Cells # 0 10^3/uL; Nucleated Red Blood Cells % 0 %; Platelet Count 251 K/mm3 (142-424); Red Blood Count 4.28 M/mm3 (4.60-6.20); Red Cell Distribution Width-SD 40.9 fL; White Blood Count 10.8 K/mm3 (4.8-10.8)
[2024-08-11 06:05] LABS: Hemoglobin 12.6 g/dL (14.1-18.0)
[2024-08-11 06:19] LABS: Chloride 104 mmol/L (98-107); Sodium 139 mmol/L (136-145)
[2024-08-11 06:20] LABS: Potassium 3.8 mmoL/L (3.5-5.1); Troponin I 0.02 ng/ml (0.00-0.034)
[2024-08-11 06:22] LABS: Anion Gap 9.8 mEq/L (5-15); Blood Urea Nitrogen 19 mg/dl (9-20); Carbon Dioxide 29 mmol/L (22.0-30.0); Creatinine Clearance Estimated 108 mL/min (50-200); Estimated Glomerular Filt Rate 112 ml/min (>60); GFR (African American) 136 ML/MIN (>60)
[2024-08-11 06:23] LABS: Calcium 9.2 mg/dl (8.4-10.2); Glucose 195 mg/dl (74-100); Magnesium 1.7 mg/dl (1.6-2.3)
--- NOTE | 2024-08-11 07:55 | HMH.PHAINT1 ---
Pharmacy Intervention Comments: MEDICATION RECONCILIATION COMPLETED ON PATIENT USING EXTERNAL FILL HISTORY FROM PHARMACY. -GERI BUTLER, HILARIOD
--- NOTE | 2024-08-11 08:04 | HMH.PHAHEP ---
[facility] Pharmacy Heparin Dosing Demographic Data Admission date:: 08/11/24 Date: 08/11/24 Time: 08:04 Allergies Allergy/AdvReac Type Severity Reaction Status Date / Time naproxen Allergy Unknown Unknown Verified 08/11/24 07:18 allergy reaction Height: 1.8 m Weight: 107.7 kg Indication Medication therapy:: Heparin Current Active Problems (Updated 08/11/24 @ 05:22 by Juan Vazquez MD) CAD (coronary artery disease) (Acute) HLD (hyperlipidemia) (Acute) HTN (hypertension) (Acute) Angina pectoris, unstable (Acute) Hypertensive emergency (Acute) CVA?: No Bleeding problem?: No Kidney disease?: No IA?: No Desired PTT range:: 50-75 seconds Labs Anticoagulation Lab Results:: 08/11/24 08/11/24 00:06 04:46 Hgb 14.4 12.6 L D Hct 42.3 37.2 L Plt Count 261 251 Monitoring Dose Monitor 1: Date: 08/11/24 Time: 01:34 PTT Result:: 24.8 Infusion Rate:: INFUSION STARTED WITH HEPARIN 20 ML/HR (1000 UNITS/HR) Dose Monitor 2: Date: 08/11/24 Time: 07:15 PTT Result:: 37.0 Infusion Rate:: BOLUS 4000 UNITS OF HEPARIN, INCREASE RATE TO 28 ML/HR (1400 UNITS/HR) Core Measures Is INR > or = 2 at discharge?: No Most Recent Labs:: Laboratory Results - last 24 hr 08/11/24 00:06: WBC 7.6, RBC 4.88, Hgb 14.4, Hct 42.3, MCV 86.7, MCH 29.5, MCHC 34.0, RDW 13.0, Plt Count 261, MPV 9.9, Neut % (Auto) 59.4, Lymph % (Auto) 25.8, Ward % (Auto) 9.1, Eos % (Auto) 4.4, Baso % (Auto) 0.5, Neut # (Auto) 4.5, Lymph # (Auto) 2.0, Ward # (Auto) 0.7, Eos # (Auto) 0.3, Baso # (Auto) 0.0, PT 10.7, INR 0.96, APTT 24.8, Sodium 139, Potassium 3.1 L, Chloride 101, Carbon Dioxide 32 H, Anion Gap 9.1, BUN 19, Creatinine 0.70, Estimated Creat Clear 100, Estimated GFR 112, Est GFR ( Amer) 136, Glucose 169 H, Calcium 9.4, Total Bilirubin 0.6, AST 36, ALT 28, Alkaline Phosphatase 109, Troponin I 0.03, Total Protein 7.9, Albumin 4.5, Globulin 3.4 H, Albumin/Globulin Ratio 1.3, Lipase 81, HCV Ab JAYASHREE w/Rflx PCR Qn Negative, HIV Ag/Ab Combo Qual Negative 08/11/24 02:36: POC Glucose 187 H 08/11/24 03:38: Troponin I 0.03 08/11/24 04:46: WBC 10.8 D, RBC 4.28 L, Hgb 12.6 L D, Hct 37.2 L, MCV 86.9, MCH 29.2, MCHC 33.6, RDW 13.0, Plt Count 251, MPV 10.4, Neut % (Auto) 75.7, Lymph % (Auto) 14.3, Ward % (Auto) 7.2, Eos % (Auto) 1.7, Baso % (Auto) 0.4, Neut # (Auto) 8.2 H, Lymph # (Auto) 1.5, Ward # (Auto) 0.8, Eos # (Auto) 0.2, Baso # (Auto) 0.0, Sodium 139, Potassium 3.8 D, Chloride 104, Carbon Dioxide 29, Anion Gap 9.8, BUN 19, Creatinine 0.70, Estimated Creat Clear 108, Estimated GFR 112, Est GFR ( Amer) 136, Glucose 195 H, Calcium 9.2, Magnesium 1.7, Troponin I 0.02 08/11/24 05:50: POC Glucose 184 H If INR was < than 2.0 why was therapy stopped?: DRIP STOPPED Were Heparin and Warfarin started on the same day?: No
[2024-08-11] MEDS: LISINOPRIL 20MG TABLET 40 MG PO (08:09)
[2024-08-11] MEDS: VENLAFAXINE XR 75MG CAPSULE 75 MG PO (08:10)
[2024-08-11] MEDS: AMLODIPINE 10MG TABLET 10 MG PO (08:10)
[2024-08-11 08:36] LABS: Cholesterol 124 mg/dl (140-200); HDL Cholesterol 42 mg/dl (40-60); Triglycerides 104 mg/dl (30-150); VLDL Cholesterol 21 mg/dL (0-40)
[2024-08-11] MEDS: HEPARIN SODIUM,PORCINE/D5W 500 ML 28 UNIT IV (08:36)
[2024-08-11] MEDS: HEPARIN SODIUM 5,000 UNIT/ML VIAL 4000 UNIT IV (08:37)
[2024-08-11 08:47] LABS: Direct LDL Cholesterol 55.55 mg/dL (100-129)
[2024-08-11 08:53] LABS: Free T4 (Free Thyroxine) 1.11 ng/dl (0.78-2.19)
[2024-08-11 09:04] LABS: Hemoglobin A1C 7.6 % (4.0-6.0)
[2024-08-11 09:07] LABS: Thyroid Stimulating Hormone 1.26 uIU/mL (0.465-4.68)
[2024-08-11 09:33] LABS: NT Pro Brain Natriuretic Pep. 124 pg/mL (0-125)
--- NOTE | 2024-08-11 10:43 | IR_ITS ---
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 COMPLICATIONS NONE Estimated Blood Loss: LESS THAN 10 ML TECHNIQUE One percent lidocaine used to anesthetize the right groin. The right femoral artery was accessed via the Seldinger technique and a 5 Italian sheath was placed in the right femoral artery. A JL 4, JR4 catheter were used to perform left heart catheterization, left ventriculogram selective coronary angiography as well as selective engagement of the 2 vein grafts and the left internal mammary artery. Patient was severely hypertensive and had probably vascular disease therefore was decided perform bilateral selective renal angiography with a JR4 catheter. At the end the procedure the apparatus was removed the groin is reprepped closure change sheath was removed and hemostasis was achieved using Perclose device patient was transferred to the postop putting in stable condition ANGIOGRAPHIC RESULTS The left main artery Normal The left anterior descending artery Proximally occluded The circumflex artery Is patent with a 30% stenosis in the proximal segment calcified first obtuse marginal artery with mid vessel 50 and then 60% stenosis followed by a distal 60% stenosis. The second obtuse marginal artery has a proximal 40% and mid vessel 40 to 50% stenosis The right coronary artery Proximally occluded The TRENT ventriculogram reveals Dilated ventricle ejection fraction 45% The left ventricular end-diastolic pressure 20 mmHg ROSADO to LAD is widely patent. Distal to the anastomosis there are tandem 40% mid LAD stenosis Saphenous vein graft to a small diagonal artery has proximal 40 to 50% eccentric plaque. The diagonal artery is small but patent Saphenous vein graft to the posterior descending artery is small but patent. The posterior descending artery is small Right renal artery singular and has an ostial 40% stenosis with a 10 mm Shaikh stenotic gradient using a 5 Italian catheter Left renal artery is singular and has an ostial 40 to 50% stenosis with a 15 mm Shaikh stenotic gradient using a 4 Italian JR4 catheter IMPRESSION Coronary artery disease as described above Patent bypass grafts as described above Dilated ventricle with reduced ejection fraction. Suspect hypertensive heart disease Elevated LVEDP Patent ROSADO to LAD with disease distal to the anastomosis which is best managed medically Moderate disease in a large saphenous vein graft supplying a small diagonal artery which is best managed medically Patent small saphenous vein graft supplying small posterior descending artery Mild to moderate bilateral renal artery stenosis with a 10 and 15 mm Shaikh stenotic gradient PLAN 1. Medical management 2. Better controlled hypertension 3. Risk factor modification 4. LDL less than 55 to be achieved with high intensity statin Electronically signed by : Dave Lyn MD 08/11/2024 14:12:35
[2024-08-11 11:22] LABS: Troponin I 0.02 ng/ml (0.00-0.034)
--- NOTE | 2024-08-11 12:20 | EXP.CARD.CON ---
History of Present Illness History of Present Illness Consult date: 08/11/24 Chief complaint: Chest pain History of present illness: 68-year-old white male with history of CAD status post CABG approximately 8 years ago. He also has high blood pressure hyperlipidemia and diabetes and GERD. He does not take aspirin but does take beta-mino statin CHLOE and calcium channel mino at home. Patient states he has been feeling well and remaining reasonably active. Last night had [employer] dinner and later developed some GI upset but had severe epigastric pain with chest tightness radiating up to both sides of his neck and radiating to his back. Presented to the emergency room thinking he was having a heart attack and symptoms improved somewhat with nitroglycerin but not affected with GI cocktail in the emergency room. BP >200 systolic and EKG shows sinus rhythm with Q waves in V2 and V3, ST changes in aVR, V4 through V6. His troponins were within normal range at 0.03 and 0.02. CTA chest was normal. Patient currently symptom-free on nitroglycerin drip. [facility] Disclaimer: The information contained in this section may have been updated after the patient was seen, as this information can be updated by other users. Medical History History of chest pain HLD (hyperlipidemia) Depression HTN (hypertension) Diabetes Social History Smoking Status: Never smoker alcohol intake: never current occupational status: other Travel in the last 8 weeks?: None Review of Systems Constitutional Constitutional: Denies fatigue and Denies weakness Eyes Eyes: Denies loss of vision ENT Ears, Nose, Mouth, and Throat: Denies hearing loss and Denies vertigo *Cardiovascular Cardiovascular: Reports chest pain, Denies dyspnea and Denies syncope *Respiratory Respiratory: Denies cough and Denies dyspnea *Gastrointestinal Gastrointestinal: Denies change in stool character, Reports nausea and Reports vomiting *Genitourinary Genitourinary: Denies difficulty urinating *Musculoskeletal Musculoskeletal: Denies muscle weakness Integumentary/Breasts Skin/Breast: Denies changing lesions *Neurologic Neurologic: Denies loss of vision, Denies syncope, Denies vertigo and Denies weakness Endocrine Endocrine: Denies fatigue Exam Data for Last 24 hours Vital signs and Labs for Last 24 Hours: Temp Pulse Resp BP Pulse Ox O2 Del Method O2 Flow Rate 97.9 F 74 10 L 158/86 H 92 L Nasal Cannula 2 08/11/24 08:02 08/11/24 10:01 08/11/24 10:01 08/11/24 10:01 08/11/24 11:14 08/11/24 11:14 08/11/24 11:14 Laboratory Results - last 24 hr 08/11/24 00:06: WBC 7.6, RBC 4.88, Hgb 14.4, Hct 42.3, MCV 86.7, MCH 29.5, MCHC 34.0, RDW 13.0, Plt Count 261, MPV 9.9, Neut % (Auto) 59.4, Lymph % (Auto) 25.8, [place] % (Auto) 9.1, Eos % (Auto) 4.4, Baso % (Auto) 0.5, Neut # (Auto) 4.5, Lymph # (Auto) 2.0, [place] # (Auto) 0.7, Eos # (Auto) 0.3, Baso # (Auto) 0.0, PT 10.7, INR 0.96, APTT 24.8, Sodium 139, Potassium 3.1 L, Chloride 101, Carbon Dioxide 32 H, Anion Gap 9.1, BUN 19, Creatinine 0.70, Estimated Creat Clear 100, Estimated GFR 112, Est GFR ( Amer) 136, Glucose 169 H, Calcium 9.4, Total Bilirubin 0.6, AST 36, ALT 28, Alkaline Phosphatase 109, Troponin I 0.03, Total Protein 7.9, Albumin 4.5, Globulin 3.4 H, Albumin/Globulin Ratio 1.3, Lipase 81, HCV Ab JAYASHREE w/Rflx PCR Qn Negative, HIV Ag/Ab Combo Qual Negative 08/11/24 02:36: POC Glucose 187 H 08/11/24 03:38: Troponin I 0.03 08/11/24 04:46: WBC 10.8 D, RBC 4.28 L, Hgb 12.6 L D, Hct 37.2 L, MCV 86.9, MCH 29.2, MCHC 33.6, RDW 13.0, Plt Count 251, MPV 10.4, Neut % (Auto) 75.7, Lymph % (Auto) 14.3, [place] % (Auto) 7.2, Eos % (Auto) 1.7, Baso % (Auto) 0.4, Neut # (Auto) 8.2 H, Lymph # (Auto) 1.5, [place] # (Auto) 0.8, Eos # (Auto) 0.2, Baso # (Auto) 0.0, Sodium 139, Potassium 3.8 D, Chloride 104, Carbon Dioxide 29, Anion Gap 9.8, BUN 19, Creatinine 0.70, Estimated Creat Clear 108, Estimated GFR 112, Est GFR ( Amer) 136, Glucose 195 H, Hemoglobin A1c 7.6 H, Calcium 9.2, Magnesium 1.7, Troponin I 0.02, NT-Pro-B Natriuret Pep 124 08/11/24 05:50: POC Glucose 184 H 08/11/24 07:15: APTT 37.0 L, Triglycerides 104, Cholesterol 124 L, LDL Cholesterol Direct 55.55 L, VLDL Cholesterol 21, HDL Cholesterol 42, Cholesterol/HDL Ratio 3.0, TSH 1.26, Free T4 1.11 08/11/24 10:50: Troponin I 0.02 I & O for Last 24 hours: Intake & Output 08/08/24 08/09/24 08/10/24 08/11/24 23:59 23:59 23:59 23:59 Intake Total 0.863 / 0.863 Output Total 225 / 225 Balance -224.137 / -224.137 Weight 237 lb 7.005 oz Constitutional Constitutional: no acute distress and cooperative *Routine HEENT Exam Eye: Present PERRL *Routine Respiratory Exam Respiratory: Present CTA bilaterally; Absent accessory muscle use, wheezes or crackles *Routine Cardiovascular Exam Cardiovascular: Present RRR, Normal S1 and Normal S2; Absent murmur, gallop or rubs *Routine Abdominal Exam Abdominal: Present soft and tenderness Comments: Mild epigastric tenderness on palpation *Routine Extremities Exam Extremities: Present pulses intact; Absent cyanosis or edema *Routine Skin Exam Skin: Present intact; Absent erythema or wounds *Routine Neurological Exam Neurological: Present alert and oriented X3 Routine Psychiatric Exam Psychiatric: Present cooperative Meds Home Medications and Allergies Home Medications ?Medication ?Instructions ?Recorded ?Confirmed ?Type amlodipine 10 mg tablet 10 mg PO DAILY 05/18/24 08/11/24 History atorvastatin 40 mg tablet 40 mg PO HS 05/18/24 08/11/24 History lisinopril 40 mg tablet 40 mg PO DAILY 05/18/24 08/11/24 History meloxicam 7.5 mg tablet 7.5 mg PO DAILY 05/18/24 08/11/24 History metoprolol succinate 25 mg 25 mg PO HS 05/18/24 08/11/24 History tablet,extended release 24 hr pioglitazone 45 mg tablet 45 mg PO DAILY 05/18/24 08/11/24 History venlafaxine 75 mg capsule,extended 75 mg PO DAILY 05/18/24 08/11/24 History release 24 hr New Prescriptions to Start Prescriptions: Allergies Allergy/AdvReac Type Severity Reaction Status Date / Time naproxen Allergy Unknown Unknown Verified 08/11/24 07:18 allergy reaction Assessment and Plan *Assessment and plan (1) Angina pectoris, unstable: Status: Acute Category: Medical Code(s): I20.0 - Unstable angina (2) Hypertensive emergency: Status: Acute Category: Medical Code(s): I16.1 - Hypertensive emergency (3) CAD (coronary artery disease): Status: Acute Category: Medical Code(s): I25.10 - Atherosclerotic heart disease of [place] coronary artery without angina pectoris (4) HLD (hyperlipidemia): Status: Acute Category: Medical Code(s): E78.5 - Hyperlipidemia, unspecified (5) HTN (hypertension): Status: Acute Category: Medical Code(s): I10 - Essential (primary) hypertension Plan MV-CAD s/p CABG with unstable angina - Severe substernal chest pressure radiating to neck and back associated with elevated blood pressure and abnormal EKG - Symptoms relieved with nitroglycerin - Discussed with patient some of the symptoms could be GI in etiology especially given epigastric tenderness on palpation but he is high risk for recurrence and has severe symptoms so a left heart cath would be reasonable. Patient states he thought he was dying yesterday and would much prefer a heart cath to evaluate for worsening ischemia while he is here. - Will also check 2D echo - Continue heparin, nitroglycerin drip, beta-mino, statin, ARB, and aspirin Hypertensive emergency - Systolic BP greater than 200 with severe chest pain - CTA unremarkable - Continue home meds and nitroglycerin drip Further plans pending heart cath and echo results.
[2024-08-11 13:02] LABS: Chloride 104 mmol/L (98-107); Potassium 3.4 mmoL/L (3.5-5.1); Sodium 136 mmol/L (136-145)
[2024-08-11 13:05] LABS: Anion Gap 8.4 mEq/L (5-15); Blood Urea Nitrogen 23 mg/dl (9-20); Calcium 9.3 mg/dl (8.4-10.2); Carbon Dioxide 27 mmol/L (22.0-30.0); Creatinine Clearance Estimated 108 mL/min (50-200); Estimated Glomerular Filt Rate 134 ml/min (>60); GFR (African American) 162 ML/MIN (>60); Glucose 179 mg/dl (74-100)
[2024-08-11] MEDS: ASPIRIN EC 81MG TABLET 81 MG PO (13:06)
--- NOTE | 2024-08-11 13:13 | PC.NURSE ---
Patient taken down to laborer [place] at this time.
--- NOTE | 2024-08-11 13:14 | PC.NURSE ---
pt to recyclable materials sorter with recyclable materials sorter RN via wheelchair @[phone]
[2024-08-11] MEDS: 0.9 % SODIUM CHLORIDE 500 ML 25 ML IV (13:40)
[2024-08-11] MEDS: LIDOCAINE 1% 10ML MDV 10 ML IJ (13:40)
[2024-08-11] MEDS: HEPARIN 1,000 UNITS/500ML NS (CATH LAB) 3000 UNIT IV (13:40)
[2024-08-11] MEDS: FENTANYL 100MCG/2ML VIAL 50 MCG IV (13:47)
[2024-08-11] MEDS: MIDAZOLAM HCL 1MG/ML 5ML VIAL 1 MG IV (13:47)
--- NOTE | 2024-08-11 14:08 | PC.NURSE ---
Addendum entered by Dana Moon RN 08/11/24 14:54: Report received from Destiney HARVEY. Original Note: Patient arrived back to ICU at this time. Destiney HARVEY states she spoke with and he would like to stop heparin and nitro drip. Continuation of care plan.
--- NOTE | 2024-08-11 14:09 | PC.NURSE ---
pt arrived back to room [id number] by cecy @[phone]
[2024-08-11] MEDS: IOPAMIDOL-370 (76%);100ML BOTTLE 50 ML IV (14:47)
--- NOTE | 2024-08-11 15:56 | PC.NURSE ---
Patient elevated to a 25 degree angle at this time. Femoral site clean, dry, and intact. Continuation of care plan.
--- NOTE | 2024-08-11 16:47 | PC.NURSE ---
notified of patients blood pressure at this time. No new orders received. Continuation of care plan.
--- NOTE | 2024-08-11 17:12 | PC.NURSE ---
Patient complains of sharp right sided upper abdominal pain. notified. New orders received. Continuation of care plan.
[2024-08-11] MEDS: MORPHINE 2MG/ML SYRINGE 2 MG IV (17:50)
--- NOTE | 2024-08-11 17:50 | PC.NURSE ---
Patient complains of 6/10 sharp right upper abdominal pain. notified. New orders received. Patient medicated per APR. Continuation of care plan.
[2024-08-11] MEDS: METOPROLOL SUCCINATE XL 25MG TABLET 25 MG PO (20:38)
[2024-08-11] MEDS: ATORVASTATIN 40MG TABLET 40 MG PO (20:38)
[2024-08-11] MEDS: PANTOPRAZOLE 40MG VIAL 40 MG IV (20:38)
[2024-08-12] VITALS (14 sets, daily range): BP systolic 157–190; BP diastolic 82–96; PULSE 50–61; RESP 18–25; TEMP 36.9–37.4; O2SAT 87–96; BMI 33.7
--- NOTE | 2024-08-12 01:10 | ECG_ITS ---
APPROVED REPORT Exam: Resting ECG HR:55 bpm ECG Measurements Heart Rate 55 AXES VA 210 P 78 QRSd 98 QRS -17 QT 402 T 79 QTc 390 Conclusion SINUS BRADYCARDIA WITH FIRST DEGREE AV BLOCK ANTEROSEPTAL MYOCARDIAL INFARCTION , PROBABLY OLD [40+ ms Q WAVE IN V1-V4] ABNORMAL ECG UNCONFIRMED REPORT Electronically signed by : Lam Farooq MD 08/12/2024 12:48:25
--- NOTE | 2024-08-12 01:15 | PC.NURSE ---
Dr. Vazquez notified of rate changes on HR, nurse obtained ekg and showed an AV block first degree which was not noted on the EKG done last night. Rate changes are more frequent, blood pressure remains stable and patient continues to wake up when aroused, MD notified of all these things. MD acknowledged, no orders at this time.
[2024-08-12 01:49] LABS: Microscopic, Urine URINE MICROSCOPIC (MICROSCOPIC)
[2024-08-12 01:57] LABS: Appearance,Urine CLEAR (Clear); Bilirubin,Urine Negative (Negative); Blood, Urine Negative (Negative); Color,Urine YELLOW (Yellow); Glucose,Urine (UA) 1+ (Negative); Ketones,Urine Negative (Negative); Leukocyte Esterase,Urine Negative (Negative); Nitrate,Urine Negative (Negative); Protein,Urine TRACE (Negative); Urobilinogen,Urine 0.2 EU/dl (0.2)
--- NOTE | 2024-08-12 01:58 | PC.NURSE ---
Called Dr. crump for another change, patient had a 8 beat run of Vtach, nurse was instructed to continue monitoring.
[2024-08-12 02:28] LABS: Bacteria,Urine Trace /lpf; Mucus,Urine 1+ /lpf
[2024-08-12 05:30] LABS: Basophils % 0.2 % (0.1-2.0); Eosinophils # 0.1 Kmm3 (0.0-0.4); Eosinophils % 1.1 % (0.1-12.0); Hematocrit 34.2 % (42.0-52.0); Immature Granulocytes # 0.06 10^3uL; Immature Granulocytes % 0.7 %; Lymphocytes # 1.5 K/mm3 (0.7-4.5); Lymphocytes % 16.6 % (10-50); Mean Corpuscular HGB Conc 35.1 g/dL (31.8-35.4); Mean Corpuscular Hemoglobin 30.2 pg (27.0-31.2); Mean Corpuscular Volume 86.1 fl (80-94); Mean Platelet Volume 9.9 fl (7.4-10.4); Monocytes # 0.9 K/mm3 (0.1-1.0); Monocytes % 9.6 % (1.7-9.3); Neutrophils # 6.6 K/mm3 (1.8-7.8); Neutrophils % 71.8 % (37.0-80.0); Nucleated Red Blood Cells # 0 10^3/uL; Nucleated Red Blood Cells % 0 %; Platelet Count 191 K/mm3 (142-424); Red Blood Count 3.97 M/mm3 (4.60-6.20); Red Cell Distribution Width 12.9 % (11.5-17.5); Red Cell Distribution Width-SD 40.1 fL; White Blood Count 9.1 K/mm3 (4.8-10.8)
[2024-08-12 05:36] LABS: Albumin Level 3.5 g/dl (3.5-5.0); Chloride 105 mmol/L (98-107); Potassium 3.3 mmoL/L (3.5-5.1); Sodium 136 mmol/L (136-145)
[2024-08-12 05:39] LABS: Alanine Aminotransferase 22 U/L (12-78); Albumin/Globulin Ratio 1.3 (1.1-1.8); Alkaline Phosphatase 82 U/L (38-126); Anion Gap 5.3 mEq/L (5-15); Aspartate Amino Transferase 27 U/L (17-59); Bilirubin,Total 0.7 mg/dl (0.2-1.3); Blood Urea Nitrogen 21 mg/dl (9-20); Calcium 8.7 mg/dl (8.4-10.2); Carbon Dioxide 29 mmol/L (22.0-30.0); Creatinine Clearance Estimated 109 mL/min (50-200); Estimated Glomerular Filt Rate 112 ml/min (>60); GFR (African American) 136 ML/MIN (>60); Globulin 2.7 g/dL (1.3-3.2); Glucose 158 mg/dl (74-100); Total Protein,Serum 6.2 g/dl (6.3-8.2)
[2024-08-12 05:40] LABS: Magnesium 1.8 mg/dl (1.6-2.3)
[2024-08-12] MEDS: MORPHINE 2MG/ML SYRINGE 2 MG IV (06:07)
[2024-08-12] MEDS: VENLAFAXINE XR 75MG CAPSULE 75 MG PO (08:45)
[2024-08-12] MEDS: AMLODIPINE 10MG TABLET 10 MG PO (08:45)
[2024-08-12] MEDS: ASPIRIN EC 81MG TABLET 81 MG PO (08:45)
[2024-08-12] MEDS: SODIUM CHLORIDE 0.9% 10ML VIAL 10 ML IV (08:46)
[2024-08-12] MEDS: PANTOPRAZOLE 40MG VIAL 40 MG IV (08:46)
[2024-08-12] MEDS: LISINOPRIL 20MG TABLET 40 MG PO (08:46)
[2024-08-12] MEDS: BELLADONNA ALKALOIDS 60 ML ML PO (09:09)
[2024-08-12 09:49] LABS: POC Glucose,Bedside 192 (70-110)
[2024-08-12 09:49] LABS: POC Glucose,Bedside 144 (70-110)
[2024-08-12 09:49] LABS: POC Glucose,Bedside 123 (70-110)
[2024-08-12 09:49] LABS: POC Glucose,Bedside 168 (70-110)
--- NOTE | 2024-08-12 10:06 | XR_ITS ---
PROCEDURE INFORMATION: Exam: XR Chest Exam date and time: 08/12/2024 10:09 AM Age: 68 years old Clinical indication: Cough and shortness of breath; Additional info: Persistent cough TECHNIQUE: Imaging protocol: Radiologic exam of the chest. Views: 1 view. COMPARISON: CT ANGIO CHEST 08/11/2024 12:21 AM FINDINGS: Tubes, catheters and devices: There are sternal wires consistent with previous sternotomy incision. Lungs: The lungs are underinflated. Mild increased interstitial opacities in both lungs likely represents mild pulmonary edema. Pleural spaces: Unremarkable. No pleural effusion. No pneumothorax. Heart/Mediastinum: Unremarkable. No cardiomegaly. Bones/joints: Unremarkable. IMPRESSION: The lungs are underinflated. Mild increased interstitial opacities in both lungs likely represents mild pulmonary edema.
[2024-08-12] MEDS: humaLOG 100 UNITS/ML 10ML VIAL (SSI) SUBCUT ×2 (10:20→16:42)
[2024-08-12 10:50] LABS: Adenovirus,PCR Not Detected (NotDetected); Bordetella Pertussis Not Detected (NotDetected); Chlamydophila Pneumoniae, PCR Not Detected (NotDetected); Coronavirus 19, PCR Not Detected (NotDetected); Coronavirus 229E Not Detected (NotDetected); Coronavirus NL63 Not Detected (NotDetected); Coronavirus OC43 Not Detected (NotDetected); Coronovirus HKU1,PCR Not Detected (NotDetected); Human Metapneumovirus Not Detected (NotDetected); Influenza A, PCR Not Detected (NotDetected); Influenza AH1, 2009 Not Detected (NotDetected); Influenza AH1, PCR Not Detected (NotDetected); Influenza AH3,PCR Not Detected (NotDetected); Influenza B, PCR Not Detected (NotDetected); Mycoplasma Pneumoniae, PCR Not Detected (NotDetected); Parainfluenza 1, PCR Not Detected (NotDetected); Parainfluenza 2, PCR Not Detected (NotDetected); Parainfluenza 3, PCR Not Detected (NotDetected); Parainfluenza 4, PCR Not Detected (NotDetected); Respiratory Syncytial Virus Not Detected (NotDetected)
[2024-08-12 11:36] LABS: NT Pro Brain Natriuretic Pep. 234 pg/mL (0-125)
[2024-08-12] MEDS: FUROSEMIDE 40MG/4ML VIAL 40 MG IV (11:56)
[2024-08-12] MEDS: IPRATROPIUM/ALBUTEROL 3 ML NEB IH (12:59)
[2024-08-12 13:40] LABS: Rhinovirus/Enterovirus Detected (NotDetected)
--- NOTE | 2024-08-12 14:00 | PC.NURSE ---
patient resting oxygen saturation is 87% on room air
--- NOTE | 2024-08-12 14:42 | EXP.DC.SUM ---
General Admission date:: 08/11/24 HPI HPI HPI: Patient is a 68-year-old male with past medical history of CAD status post CABG, hypertension hyperlipidemia and diabetes mellitus who presents to the hospital due to epigastric chest pain radiating to the back. According to patient it is associated with nausea vomiting, denies associated left arm pain fevers chills shortness of breath. Patient mentions his pain improved somewhat with nitroglycerin, patient was started on IV nitro and admitted for further evaluation for cardiology. 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 Patient otherwise denied diarrhea constipation dysuria fevers or chills Hospital Course Hospital Course Hospital Course: Prince Alatorre is a 68-year-old male who presented with epigastric/chest pain and was admitted for the evaluation of the same. #Chest/epigastric pain #History of CABG, lost to follow-up #Rhinovirus acute viral syndrome, cough #Musculoskeletal strain #GERD ? Patient states he had [place] shortly before epigastric/chest pain started, but seemingly improved after being given nitro in the ER. He was also given a GI cocktail. ? Cardiology consulted, s/p C without obstructive disease. No stents placed. ECHO also unremarkable. ? Respiratory panel positive for rhinovirus. Upon further inquiry, patient has been having productive cough for the past 2 weeks. ? During hospital course patient states epigastric pain moved to right flank. POCUS of gallbladder and kidney did not show concern for cholelithiasis, cholecystitis, or hydronephrosis. ? Symptoms most improved after being given Solu-Medrol and Flexeril suggesting musculoskeletal etiology of pain from coughing. ? Discharged with albuterol, prednisone, Flexeril, Protonix. Will follow-up with cardiology and PCP within 2 weeks. ? Continue aspirin 81 mg, atorvastatin, metoprolol succinate 25 mg. ? Patient requiring 2 L nasal cannula, saturating 87% on room air at rest. Recommend outpatient sleep apnea test. #Hypertension ? Continue home amlodipine, lisinopril. #Type 2 diabetes ? Hemoglobin A1c 7.6%. ? Continue home metformin 1000 mg twice daily, pioglitazone 45 mg. #Anxiety/depression ? Continue home venlafaxine 75 mg. Total time spent on discharge: 32 minutes on chart review, counseling, documentation, and direct care with patient. Exam Data for Last 24 hours Vital signs and Labs for Last 24 Hours: Temp Pulse Resp BP Pulse Ox O2 Del Method O2 Flow Rate 98.9 F 54 L 22 161/83 H 92 L Nasal Cannula 2 08/12/24 12:00 08/12/24 14:00 08/12/24 14:00 08/12/24 14:00 08/12/24 14:00 08/12/24 14:00 08/12/24 14:00 Laboratory Results - last 24 hr 08/11/24 11:16: POC Glucose 168 H 08/11/24 15:58: POC Glucose 123 H 08/11/24 20:27: POC Glucose 192 H 08/11/24 22:10: Urine Color Yellow, Urine Appearance Clear, Urine pH 6.0, Ur Specific Roann 1.020, Urine Protein Trace, Urine Glucose (UA) 1+, Urine Ketones Negative, Urine Blood Negative, Urine Nitrate Negative, Urine Bilirubin Negative, Urine Urobilinogen 0.2, Ur Leukocyte Esterase Negative, Urine RBC None, Urine WBC 3-5, Ur Squamous Epith Cells 3-5, Urine Bacteria Trace, Urine Mucus 1+ 08/12/24 05:07: WBC 9.1, RBC 3.97 L, Hgb 12.0 L, Hct 34.2 L, MCV 86.1, MCH 30.2, MCHC 35.1, RDW 12.9, Plt Count 191, MPV 9.9, Neut % (Auto) 71.8, Lymph % (Auto) 16.6, Swift % (Auto) 9.6 H, Eos % (Auto) 1.1, Baso % (Auto) 0.2, Neut # (Auto) 6.6, Lymph # (Auto) 1.5, Swift # (Auto) 0.9, Eos # (Auto) 0.1, Baso # (Auto) 0.0, Sodium 136, Potassium 3.3 L, Chloride 105, Carbon Dioxide 29, Anion Gap 5.3, BUN 21 H, Creatinine 0.70, Estimated Creat Clear 109, Estimated GFR 112, Est GFR ( Amer) 136, Glucose 158 H, Calcium 8.7, Magnesium 1.8, Total Bilirubin 0.7, AST 27, ALT 22, Alkaline Phosphatase 82, NT-Pro-B Natriuret Pep 234 H, Total Protein 6.2 L, Albumin 3.5 D, Globulin 2.7, Albumin/Globulin Ratio 1.3 08/12/24 05:36: POC Glucose 144 H 08/12/24 10:28: Chlamy pneumoniae PCR Not detected, Adenovirus (PCR) Not detected, B. pertussis DNA (PCR) Not detected, Coronavirus OC43 (PCR) Not detected, Coronavirus HKU1 (PCR) Not detected, Coronavirus 229E (PCR) Not detected, SARS-CoV-2 (PCR) Not detected, Coronavirus NL63 (PCR) Not detected, Human Metapneumovir PCR Not detected, Influenza A (H1) PCR Not detected, Influ A (H1N1/09) PCR Not detected, Influenza A (H3) PCR Not detected, Influenza Type A (PCR) Not detected, Influenza Type B (PCR) Not detected, M. pneumoniae (PCR) Not detected, Parainfluenza 1 (PCR) Not detected, Parainfluenza 2 (PCR) Not detected, Parainfluenza 3 (PCR) Not detected, Parainfluenza 4 (PCR) Not detected, RSV (PCR) Not detected, Entero/Rhino (PCR) Detected A I & O for Last 24 hours: Intake & Output 08/09/24 08/10/24 08/11/24 08/12/24 23:59 23:59 23:59 23:59 Intake Total 220.863 / 370.863 960 / 960 Output Total 1100 / 1100 1050 / 1050 Balance -879.137 / -729.137 -90 / -90 Weight 107.7 kg 109.2 kg Constitutional Constitutional: no acute distress and obese *Routine HEENT Exam Head: Present normocephalic Eye: Present EOMI and PERRL ENT: Present mucous membranes moist *Routine Neck Exam Neck: Present supple; Absent lymphadenopathy *Routine Respiratory Exam Respiratory: Present CTA bilaterally *Routine Cardiovascular Exam Cardiovascular: Present RRR *Routine Abdominal Exam Abdominal: Present soft and normoactive bowel sounds; Absent tenderness *Routine Extremities Exam Extremities: Absent cyanosis, clubbing or edema *Routine Skin Exam Skin: Present warm; Absent rash *Routine Neurological Exam Neurological: Present alert and oriented X3 Results Data Completed and Pending Labs on day of discharge: Labs from last 24 hours 08/12/24 08/12/24 08/12/24 10:28 05:36 05:07 WBC 9.1 RBC 3.97 L Hgb 12.0 L Hct 34.2 L MCV 86.1 MCH 30.2 MCHC 35.1 RDW 12.9 Plt Count 191 MPV 9.9 Neut % (Auto) 71.8 Lymph % (Auto) 16.6 Swift % (Auto) 9.6 H Eos % (Auto) 1.1 Baso % (Auto) 0.2 Neut # (Auto) 6.6 Lymph # (Auto) 1.5 Swift # (Auto) 0.9 Eos # (Auto) 0.1 Baso # (Auto) 0.0 Sodium 136 Potassium 3.3 L Chloride 105 Carbon Dioxide 29 Anion Gap 5.3 BUN 21 H Creatinine 0.70 Estimated Creat Clear 109 Estimated GFR 112 Est GFR ( Amer) 136 Glucose 158 H POC Glucose 144 H Calcium 8.7 Magnesium 1.8 Total Bilirubin 0.7 AST 27 ALT 22 Alkaline Phosphatase 82 NT-Pro-B Natriuret Pep 234 H Total Protein 6.2 L Albumin 3.5 D Globulin 2.7 Albumin/Globulin Ratio 1.3 Urine Color Urine Appearance Urine pH Ur Specific Roann Urine Protein Urine Glucose (UA) Urine Ketones Urine Blood Urine Nitrate Urine Bilirubin Urine Urobilinogen Ur Leukocyte Esterase Urine RBC Urine WBC Ur Squamous Epith Cells Urine Bacteria Urine Mucus Chlamy pneumoniae PCR Not detected Adenovirus (PCR) Not detected B. pertussis DNA (PCR) Not detected Coronavirus OC43 (PCR) Not detected Coronavirus HKU1 (PCR) Not detected Coronavirus 229E (PCR) Not detected SARS-CoV-2 (PCR) Not detected Coronavirus NL63 (PCR) Not detected Human Metapneumovir PCR Not detected Influenza A (H1) PCR Not detected Influ A (H1N1/09) PCR Not detected Influenza A (H3) PCR Not detected Influenza Type A (PCR) Not detected Influenza Type B (PCR) Not detected M. pneumoniae (PCR) Not detected Parainfluenza 1 (PCR) Not detected Parainfluenza 2 (PCR) Not detected Parainfluenza 3 (PCR) Not detected Parainfluenza 4 (PCR) Not detected RSV (PCR) Not detected Entero/Rhino (PCR) Detected A 08/11/24 08/11/24 08/11/24 22:10 20:27 15:58 WBC RBC Hgb Hct MCV MCH MCHC RDW Plt Count MPV Neut % (Auto) Lymph % (Auto) Swift % (Auto) Eos % (Auto) Baso % (Auto) Neut # (Auto) Lymph # (Auto) Swift # (Auto) Eos # (Auto) Baso # (Auto) Sodium Potassium Chloride Carbon Dioxide Anion Gap BUN Creatinine Estimated Creat Clear Estimated GFR Est GFR ( Amer) Glucose POC Glucose 192 H 123 H Calcium Magnesium Total Bilirubin AST ALT Alkaline Phosphatase NT-Pro-B Natriuret Pep Total Protein Albumin Globulin Albumin/Globulin Ratio Urine Color Yellow Urine Appearance Clear Urine pH 6.0 Ur Specific Roann 1.020 Urine Protein Trace Urine Glucose (UA) 1+ Urine Ketones Negative Urine Blood Negative Urine Nitrate Negative Urine Bilirubin Negative Urine Urobilinogen 0.2 Ur Leukocyte Esterase Negative Urine RBC None Urine WBC 3-5 Ur Squamous Epith Cells 3-5 Urine Bacteria Trace Urine Mucus 1+ Chlamy pneumoniae PCR Adenovirus (PCR) B. pertussis DNA (PCR) Coronavirus OC43 (PCR) Coronavirus HKU1 (PCR) Coronavirus 229E (PCR) SARS-CoV-2 (PCR) Coronavirus NL63 (PCR) Human Metapneumovir PCR Influenza A (H1) PCR Influ A (H1N1/09) PCR Influenza A (H3) PCR Influenza Type A (PCR) Influenza Type B (PCR) M. pneumoniae (PCR) Parainfluenza 1 (PCR) Parainfluenza 2 (PCR) Parainfluenza 3 (PCR) Parainfluenza 4 (PCR) RSV (PCR) Entero/Rhino (PCR) 08/11/24 11:16 WBC RBC Hgb Hct MCV MCH MCHC RDW Plt Count MPV Neut % (Auto) Lymph % (Auto) Swift % (Auto) Eos % (Auto) Baso % (Auto) Neut # (Auto) Lymph # (Auto) Swift # (Auto) Eos # (Auto) Baso # (Auto) Sodium Potassium Chloride Carbon Dioxide Anion Gap BUN Creatinine Estimated Creat Clear Estimated GFR Est GFR ( Amer) Glucose POC Glucose 168 H Calcium Magnesium Total Bilirubin AST ALT Alkaline Phosphatase NT-Pro-B Natriuret Pep Total Protein Albumin Globulin Albumin/Globulin Ratio Urine Color Urine Appearance Urine pH Ur Specific Roann Urine Protein Urine Glucose (UA) Urine Ketones Urine Blood Urine Nitrate Urine Bilirubin Urine Urobilinogen Ur Leukocyte Esterase Urine RBC Urine WBC Ur Squamous Epith Cells Urine Bacteria Urine Mucus Chlamy pneumoniae PCR Adenovirus (PCR) B. pertussis DNA (PCR) Coronavirus OC43 (PCR) Coronavirus HKU1 (PCR) Coronavirus 229E (PCR) SARS-CoV-2 (PCR) Coronavirus NL63 (PCR) Human Metapneumovir PCR Influenza A (H1) PCR Influ A (H1N1/09) PCR Influenza A (H3) PCR Influenza Type A (PCR) Influenza Type B (PCR) M. pneumoniae (PCR) Parainfluenza 1 (PCR) Parainfluenza 2 (PCR) Parainfluenza 3 (PCR) Parainfluenza 4 (PCR) RSV (PCR) Entero/Rhino (PCR) DS: Diagnosis Discharge Diagnosis (1) Angina pectoris, unstable: Status: Acute Code(s): I20.0 - Unstable angina (2) Hypertensive emergency: Status: Acute Code(s): I16.1 - Hypertensive emergency (3) CAD (coronary artery disease): Status: Acute Code(s): I25.10 - Atherosclerotic heart disease of [place] coronary artery without angina pectoris (4) HLD (hyperlipidemia): Status: Acute Code(s): E78.5 - Hyperlipidemia, unspecified (5) HTN (hypertension): Status: Acute Code(s): I10 - Essential (primary) hypertension Meds Home Medications and Allergies Home Medications ?Medication ?Instructions ?Recorded ?Confirmed ?Type amlodipine 10 mg tablet 10 mg PO DAILY 05/18/24 08/11/24 History atorvastatin 40 mg tablet 40 mg PO HS 05/18/24 08/11/24 History lisinopril 40 mg tablet 40 mg PO DAILY 05/18/24 08/11/24 History metoprolol succinate 25 mg 25 mg PO HS 05/18/24 08/11/24 History tablet,extended release 24 hr pioglitazone 45 mg tablet 45 mg PO DAILY 05/18/24 08/11/24 History venlafaxine 75 mg capsule,extended 75 mg PO DAILY 05/18/24 08/11/24 History release 24 hr metformin 1,000 mg tablet 1,000 mg PO BID 08/11/24 08/11/24 History albuterol sulfate 1.25 mg/3 mL 1.25 mg (3 mL) inhalation QID PRN 08/12/24 Rx solution for nebulization shortness of breath or wheezing #90 mL aspirin 81 mg tablet,delayed 81 mg PO DAILY 30 days #30 tabs 08/12/24 Rx release cyclobenzaprine 10 mg tablet 10 mg PO TID PRN muscle spasm #20 08/12/24 Rx tabs meloxicam 7.5 mg tablet 7.5 mg PO DAILY PRN pain 30 days 08/12/24 08/11/24 Rx #0 tabs pantoprazole 40 mg tablet,delayed 40 mg PO DAILY 30 days #30 tabs 08/12/24 Rx release (Protonix) prednisone 20 mg tablet 40 mg (2 x 20 mg) PO DAILY 4 days 08/12/24 Rx #8 tabs New Prescriptions to Start Prescriptions: albuterol sulfate Gina,Vinay aspirin Gina,Vinay cyclobenzaprine Gina,Vinay pantoprazole [Protonix] Gina,Vinay prednisone Gina,Vinay Allergies Allergy/AdvReac Type Severity Reaction Status Date / Time naproxen Allergy Unknown Unknown Verified 08/11/24 07:18 allergy reaction Discharge Plan Disposition Patient Disposition: Home, Self-Care Condition: Fair Follow up Plan Follow up with: Sera Barrera MD [Referring, Medical] - Enter time for follow up Eric Landry [Referring, Medical] - Enter time for follow up Prescriptions/Medication Reconciliation: New aspirin 81 mg Tablet,Delayed Release (Dr/Ec) 81 mg PO DAILY 30 Days Qty: 30 0RF pantoprazole [Protonix] 40 mg tablet,delayed release (DR/EC) 40 mg PO DAILY 30 Days Qty: 30 0RF Rx Instructions: Take on empty stomach in the morning. albuterol sulfate 1.25 mg/3 mL solution for nebulization 1.25 mg inhalation QID PRN (Reason: shortness of breath or wheezing) Qty: 90 0RF cyclobenzaprine 10 mg tablet 10 mg PO TID PRN (Reason: muscle spasm) Qty: 20 0RF prednisone 20 mg tablet 40 mg PO DAILY 4 Days Qty: 8 0RF Continued atorvastatin 40 mg tablet 40 mg PO HS Patient Comments: TAKE 1 TABLET BY MOUTH ONCE DAILY venlafaxine 75 mg capsule,extended release 24hr 75 mg PO DAILY Patient Comments: TAKE 1 CAPSULE BY MOUTH ONCE DAILY pioglitazone 45 mg tablet 45 mg PO DAILY Patient Comments: TAKE 1 TABLET BY MOUTH ONCE DAILY amlodipine 10 mg tablet 10 mg PO DAILY Patient Comments: TAKE 1 TABLET BY MOUTH ONCE DAILY metoprolol succinate 25 mg tablet extended release 24 hr 25 mg PO HS Patient Comments: TAKE 1 TABLET BY MOUTH ONCE DAILY AT NIGHT lisinopril 40 mg tablet 40 mg PO DAILY Patient Comments: TAKE 1 TABLET BY MOUTH ONCE DAILY metformin 1,000 mg Tablet 1,000 mg PO BID Changed meloxicam 7.5 mg tablet 7.5 mg PO DAILY PRN (Reason: pain) 30 Days Qty: 0 0RF Patient Comments: TAKE 1 TABLET BY MOUTH ONCE DAILY Problem Reconciliation Problems Reviewed?: Yes Patient Discharge Instructions Patient Instructions: DI for Cardiac Catheterization, DI for High Blood Pressure, DI for Pleurisy, DI for Surgical Site Infection, DI for Coronary Artery Disease, Cardiology Catheterization Patient / Family Discharge Instructions Print Language: Luxem[place]ish Providers Primary Care Provider: Provider,Referral Admit Provider: Jesse Wolfe Attending Provider: Jesse Wolfe
--- NOTE | 2024-08-12 15:11 | XR_ITS ---
PROCEDURE INFORMATION: Exam: XR Abdomen Exam date and time: 08/12/2024 4:05 PM Age: 68 years old Clinical indication: Abdominal pain; Additional info: R flank pain TECHNIQUE: Imaging protocol: Radiologic exam of the abdomen. Views: Frontal supine view of the abdomen. 1 View. COMPARISON: CT ANGIO ABDOMEN PELVIS 08/11/2024 12:21 AM FINDINGS: Gastrointestinal tract: See Organs finding. Organs: Reduced sensitivity for detection urinary stones due to a fair amount of retained bowel gas. Bones/joints: Unremarkable. IMPRESSION: 1. Reduced sensitivity for detection urinary stones due to a fair amount of retained bowel gas. 2. No acute abnormalities. 3. Mild air distension of the colon
[2024-08-12] MEDS: KETOROLAC 30MG/ML VIAL 30 MG IV (15:13)
--- NOTE | 2024-08-12 15:31 | PC.NURSE ---
Addendum entered by Alisson Gillis RN 08/12/24 16:21: verified with md that he wants patietn to continue metoprolol even with episodes of bradycardia Original Note: morning rounds spoke with md about patient events overnight. also mentioned dry hacky cough, abd pain, and need for 2l of oxygen. Gi cocktail ordered at that time. through out day patient has slept off and on. did note oxygen to drop through out the day and encouraged patient to keep o2 on. md notified of gi cocktail not working for the cough, and new orders obtained and carried out. noted entero rhino on respiratory panel. md stated plan was to discharge patient this afternoon with home oxygen. updated daughter on plan. upon waking patient and notifying him of plan, it was noted patient started complaining of the abdominal pain and stating he felt he may need a second opion and was very concerned something else was wrong. notified md and order obtained for toradol, KUB, and he would be over to speak with patient
[2024-08-12] MEDS: CYCLOBENZAPRINE 10MG TABLET 10 MG PO (16:10)
[2024-08-12] MEDS: BENZONATATE 100MG CAPSULE 200 MG PO (16:10)
[2024-08-12] MEDS: METHYLPREDNISOLONE SOD SUCC 125MG VIAL 125 MG IV (16:11)
[2024-08-12 16:40] LABS: POC Glucose,Bedside 188 (70-110)
--- NOTE | 2024-08-14 12:47 | SW/DCPLANNER ---
Spoke with patient on the phone. Patient stated that he is doing okay. Patient stated that he is aware of his appointments and that he has no called to schedule his follow ups. Patient stated that he was able to get his new medicine picked up from [facility]. Patient stated that he has no concerns or questions at this time. Janet Mann
== END 2024-08-12 18:28 | disposition home or self-care (01) ==
LOC: ER 01:24 → ICU 02:32
PROVIDERS: Internal Medicine; Physician Assistant; Student in an Organized Health Care Education/Training Program; Admitting Provider Internal Medicine Adolescent Medicine; Emergency Provider Emergency Medicine; Visit Provider Internal Medicine Adolescent Medicine
PROC: 4A023N7 Measurement of Cardiac Sampling and Pressure, Left Heart, Percutaneous Approach (ICD-10-PCS; CPT 93452; principal; 2024-08-11 13:15)
DX: I25.710 Atherosclerosis of autologous vein coronary artery bypass graft(s) with unstable angina pectoris (principal); I70.1 Atherosclerosis of renal artery; I16.1 Hypertensive emergency; E78.5 Hyperlipidemia, unspecified; E11.9 Type 2 diabetes mellitus without complications; I25.2 Old myocardial infarction; Z79.84 Long term (current) use of oral hypoglycemic drugs; Z79.52 Long term (current) use of systemic steroids; Z79.82 Long term (current) use of aspirin; Z79.899 Other long term (current) drug therapy; Z95.1 Presence of aortocoronary bypass graft
CPT/HCPCS: 93459; 0223U; 36415; 71045; 71275; 74018; 74174; 80048; 80053; 80061; 81001; 82962; 83036; 83690; 83735; 83880; 84439; 84443; 84484; 85025; 85610; 85730; 86803; 87389; 87633; 93005; 93306; 94640; 99152; C1725; C1760; C1769; C1894; G0378; J1450; J1644; J1885; J1938; J2003; J2250; J2270; J2470; J2919; J3010; J7040; Q9967